=== PATIENT | male | born 1955 | race Caucasian/White ===

== ENCOUNTER → 2024-10-13 | Outpatient (BNVA) | payer MEDICARE, MEDICAID, SELFPAY | END | disposition home or self-care (01) | PROVIDERS: PCP Nurse Practitioner Family; Referring Provider Nurse Practitioner Family; Visit Provider Urology | DX: N40.1 Benign prostatic hyperplasia with lower urinary tract symptoms (principal); R39.12 Poor urinary stream; I10 Essential (primary) hypertension; J44.9 Chronic obstructive pulmonary disease, unspecified; Z86.73 Personal history of transient ischemic attack (TIA), and cerebral infarction without residual deficits | CPT/HCPCS: 51741; 51798 ==

== ENCOUNTER → 2025-01-27 | Outpatient (CLI) | payer MEDICARE, MEDICAID, SELFPAY ==
[2025-01-27 12:04] LABS: Basophils % (Auto) 0 % (0-2.5); Eosinophils # (Auto) 0.2 Thou/mm3 (0.0-0.5); Eosinophils % (Auto) 3 % (0-10); Hematocrit 44.2 % (41.0-53.0); Hemoglobin 14.9 g/dL (13.5-16.0); Immature Granulocytes % (Auto) 0 % (0-0); Immature Granulocytes Auto 0.02 Thou/mm3 (0.00-0.00); Lymphocytes # (Auto) 1.2 Thou/mm3 (1.0-4.8); Lymphocytes % (Auto) 18 % (10-50); Mean Corpuscular HGB Conc 33.7 g/dl (31.0-37.0); Mean Corpuscular Hemoglobin 29.4 pg (25.0-35.0); Mean Corpuscular Volume 87 fL (80-100); Monocytes # (Auto) 0.6 Thou/mm3 (0.0-0.8); Monocytes % (Auto) 8 % (0-12); Neutrophils # (Auto) 4.8 Thou/mm3 (1.8-7.7); Neutrophils % (Auto) 71 % (37-80); Nucleated Red Blood Cell % 0 /100 WBC (0); Platelet Count 223 Thou/mm3 (140-440); RDW Standard Deviation 47.5 fL (35.1-43.9); Red Blood Count 5.07 Miln/mm3 (4.50-5.90); White Blood Count 6.7 Thou/mm3 (3.8-10.6)
[2025-01-27 12:11] LABS: Partial Thromboplastin Time 27.6 Seconds (22.0-36.0); Prothrombin Time 11.2 Seconds (9.0-12.2)
[2025-01-27 12:14] LABS: Anion Gap 8 (7-16); BUN/Creatinine Ratio 17 Ratio (12-20); Blood Urea Nitrogen 15 mg/dL (9-23); Calcium 9.4 mg/dL (8.3-10.6); Carbon Dioxide 32.2 mMol/L (20.0-31.0); Chloride 103 mMol/L (98-107); Creatinine (Component) 0.9 mg/dL (0.6-1.3); Glucose 91 mg/dL (74-106); Osmolality,Calculated 285 (275-295); Sodium 143 mMol/L (136-145); eGFR > 60 See Note
== END | disposition home or self-care (01) ==
LOC: COPL 10:47
PROVIDERS: PCP Nurse Practitioner Family; Referring Provider Internal Medicine; Visit Provider Internal Medicine
DX: I25.10 Atherosclerotic heart disease of native coronary artery without angina pectoris (principal); I48.91 Unspecified atrial fibrillation
CPT/HCPCS: 36415; 80048; 85025; 85610; 85730

== ENCOUNTER → 2025-04-11 | Outpatient (CLI) | payer MEDICARE, MEDICAID, SELFPAY ==
--- NOTE | 2025-04-11 10:53 | XR_ITS ---
Examination: PA lateral chest 2 views TECHNIQUE: Upright PA lateral chest 2 views Date and time: April 11, 2025 1112 hours INDICATIONS: Diagnosis COPD. FINDINGS: Normal heart size. Mild hyperexpansion. Lungs are clear. Moderate thoracic spondylosis IMPRESSION: Mild hyperexpansion
[2025-04-11 12:27] LABS: Basophils # (Auto) 0.1 Thou/mm3 (0.0-0.2); Basophils % (Auto) 1 % (0-2.5); Eosinophils # (Auto) 0.3 Thou/mm3 (0.0-0.5); Eosinophils % (Auto) 4 % (0-10); Hematocrit 44.2 % (41.0-53.0); Hemoglobin 14.9 g/dL (13.5-16.0); Immature Granulocytes % (Auto) 0 % (0-0); Immature Granulocytes Auto 0.02 Thou/mm3 (0.00-0.00); Lymphocytes % (Auto) 14 % (10-50); Mean Corpuscular HGB Conc 33.7 g/dl (31.0-37.0); Mean Corpuscular Hemoglobin 29.7 pg (25.0-35.0); Mean Corpuscular Volume 88 fL (80-100); Monocytes # (Auto) 0.6 Thou/mm3 (0.0-0.8); Monocytes % (Auto) 8 % (0-12); Neutrophils % (Auto) 73 % (37-80); Nucleated Red Blood Cell % 0 /100 WBC (0); Platelet Count 158 Thou/mm3 (140-440); RDW Standard Deviation 45.5 fL (35.1-43.9); Red Blood Count 5.02 Miln/mm3 (4.50-5.90); White Blood Count 6.9 Thou/mm3 (3.8-10.6)
[2025-04-11 12:39] LABS: Alanine Aminotransferase 12 U/L (10-49); Albumin, Serum 4.2 gm/dL (3.4-4.8); Albumin/Globulin Ratio 1.6 (1.2-2.2); Alkaline Phosphatase 138 U/L (46-116); Anion Gap 6 (7-16); Aspartate Amino Transferase 14 U/L (0-34); BUN/Creatinine Ratio 12 Ratio (12-20); Bilirubin,Total 0.9 mg/dL (0.3-1.2); Blood Urea Nitrogen 12 mg/dL (9-23); Calcium 8.9 mg/dL (8.3-10.6); Calcium (Corrected) 8.9 mg/dL (8.5-10.1); Cardiac Risk Estimate 3.7 RATIO (4.0-6.7); Chloride 99 mMol/L (98-107); Cholesterol 156 mg/dL (132-200); Globulin 2.6 gm/dL (2.3-3.5); Glucose 99 mg/dL (74-106); HDL Cholesterol 42 mg/dL (40-60); LDL Cholesterol,Calculated 91 mg/dL (0-130); Osmolality,Calculated 275 (275-295); Sodium 138 mMol/L (136-145); Thyroid Stimulating Hormone 1.03 uIU/mL (0.55-4.78); Total Protein 6.8 gm/dL (5.7-8.2); Triglycerides 116 mg/dL (30-150); Vitamin D 25 Hydroxy Total 37.1 ng/mL (7.3-40.2); eGFR > 60 See Note
[2025-04-11 13:00] LABS: Glucose Estimated Average 111 mg/dL (80-131); Hemoglobin A1C 5.5 % Hgb (4.8-6.0)
[2025-04-11 14:02] LABS: Collection Type, Urine Clean Catch
[2025-04-11 14:57] LABS: Bacteria,Urine Rare; Bilirubin,Urine Negative (Negative); Blood,Urine Negative (Negative); Clarity,Urine Clear (Clear/Hazy); Color,Urine Yellow (Lt Yel-Yel); Glucose, Urine Negative (Negative); Ketones,Urine Negative (Negative); Leukocyte Esterase,Urine Negative (Negative); Nitrite,Urine Negative (Negative); PH,Urine 7.5 (5.0-7.0); Protein,Urine Negative (Neg - Trace); RBC,Urine < 1 /hpf (0-3); Specific Gravity,Urine 1.021 (1.001-1.035); Squamous Epithelial Cell,Urine < 1 /hpf (0-5); WBC,Urine < 1 /hpf (0-5)
[2025-04-11 15:03] LABS: Creatinine MALB Rnd Ur 142 mg/dL (30-125); Microalbumin, Random Urine < 3 mg/L (0-300)
[2025-04-15 11:17] LABS: Hepatitis B Virus DNA* NOT DETECTED
[2025-04-18 07:01] LABS: Hepatitis B DNA PCR NOT DETECTED Log IU/mL
[2025-04-18 07:02] LABS: HIV Ag/Ab, 4th Gen NON-REACTIVE
== END | disposition home or self-care (01) ==
LOC: CDIM 10:42 → COPL 11:17
PROVIDERS: Visit Provider Radiology Diagnostic Radiology
DX: J98.4 Other disorders of lung (principal); Z00.00 Encounter for general adult medical examination without abnormal findings; R80.9 Proteinuria, unspecified; Z11.59 Encounter for screening for other viral diseases; Z11.4 Encounter for screening for human immunodeficiency virus [HIV]; Z79.899 Other long term (current) drug therapy
CPT/HCPCS: 36415; 71046; 80053; 80061; 81001; 82043; 82306; 82570; 83036; 84443; 85025; 87389; 87517; 87522

== ENCOUNTER → 2025-07-18 | Outpatient (BNVA) | payer MEDICARE, MEDICAID, SELFPAY | END | disposition home or self-care (01) | PROVIDERS: PCP Nurse Practitioner Family; Referring Provider Nurse Practitioner Family; Visit Provider Urology | DX: N40.1 Benign prostatic hyperplasia with lower urinary tract symptoms (principal); N13.8 Other obstructive and reflux uropathy; I10 Essential (primary) hypertension; Z86.73 Personal history of transient ischemic attack (TIA), and cerebral infarction without residual deficits; E66.9 Obesity, unspecified; Z68.26 Body mass index [BMI] 26.0-26.9, adult; J44.9 Chronic obstructive pulmonary disease, unspecified | CPT/HCPCS: 81003; 99212; G0463 ==

== ENCOUNTER 2025-09-12 16:03 | Emergency (ER) | payer MEDICARE, MEDICAID, SELFPAY ==
[2025-09-12 16:07] VITALS: BP 108/76; PULSE 82; RESP 20; TEMP 36.6; O2SAT 93
--- NOTE | 2025-09-12 16:29 | PD.EDADULT ---
ED General RME/HPI General Chief complaint: Fall Stated complaint: GROUND LEVEL FALL Time Seen by Provider: 09/12/25 16:49 Arrival date/time: 09/12/25 16:03 RME / HPI RME / HPI narrative: 70 year old male presents to the ED BIBA from home for evaluation following a fall today. Per medics, daughter on scene reported the patient had soiled himself. While walking upstairs to shower he lost strength in both legs and fell forward, striking his face on a cat scratching post. No LOC. Daughter reported the sudden weakness to be unusual for the patient which concerned her. Additionally stated patient has had a nonproductive cough for several weeks. However, noted phlegm production in the last several days. Related Data Home Medications ?Medication ?Instructions ?Recorded ?Confirmed alendronate 70 mg tablet (Fosamax) 70 mg PO QWEEK 06/17/24 07/18/25 aspirin 81 mg tablet 81 mg PO QDAY 06/17/24 07/18/25 atorvastatin 10 mg tablet 10 mg PO QDAY 06/17/24 07/18/25 hydrochlorothiazide 12.5 mg tablet 12.5 mg PO QDAY 06/17/24 07/18/25 losartan 50 mg tablet 50 mg PO QDAY 06/17/24 07/18/25 memantine 10 mg tablet 10 mg PO BID 06/17/24 07/18/25 omeprazole 20 mg tablet,delayed 20 mg PO QDAY 06/17/24 07/18/25 release finasteride 5 mg tablet 5 mg PO QDAY 09/12/24 07/18/25 tamsulosin 0.4 mg capsule 0.4 mg PO QHS 09/12/24 07/18/25 Allergies Allergy/AdvReac Type Severity Reaction Status Date / Time No Known Allergies Allergy Verified 07/18/25 14:18 Review of Systems Review of Systems Systems Reviewed: All systems reviewed, normal except as documented Past Medical History Past Medical History NEUROLOGIC: Positive Cerebrovascular Accident CARDIAC: Positive Hypercholesterolemia and Hypertension RESPIRATORY: Positive Chronic Obstructive Pulmonary Disease (COPD) GENITOURINARY: Positive Benign Prostatic Hyperplasia OTHER HISTORY: Positive Blood Transfusions Social History SMOKING STATUS: Current every day smoker ED Exam Narrative Physical exam: GENERAL APPEARANCE: alert and oriented x 4, well-developed, well-nourished, no acute distress HEENT: Normocephalic; abrasion to nose; pupils equal, round, reactive to light; EOMI; mucous membranes pink, moist; oropharynx clear NECK: Supple LUNGS: CTABL; no wheezes, no rales, no rhonchi HEART: Regular rate, regular rhythm; normal S1, S2; no murmurs ABDOMEN: non distended; normal BS; soft, no tenderness, no guarding, no rebound; no masses, no organomegaly, no hernia BACK: no CVA tenderness EXTREMITIES: atraumatic; no edema NEUROLOGIC: awake; alert and oriented x4; cranial nerves II-XII grossly intact PSYCHIATRIC: appropriate mood and affect SKIN: warm, dry, normal color; no rashes Course Course Course Narrative: 1800: Patient signed out to Dr. Stewart pending labs, imaging, and final disposition. Quality Measures none Orders Category Date Time Status Bedside COVID-19 Antigen Test NOW Care 09/12/25 17:45 Completed EKG (ED ONLY) *Do not use* NOW Care 09/12/25 18:[address] head/brain wo con Stat Exams 09/12/25 18:13 Completed EKG (ED Only) Stat Exams 09/12/25 18:12 Draft XR chest 1V portable Stat Exams 09/12/25 17:45 Completed XR pelvis 1-2V Stat Exams 09/12/25 18:24 Completed B-Type Natriuretic Peptide Stat Lab 09/12/25 18:08 Completed CBC Stat Lab 09/12/25 18:08 Completed Comprehensive Metabolic Panel Stat Lab 09/12/25 18:08 Completed Influenza A & B Rapid Panel Stat Lab 09/12/25 18:05 Completed Magnesium Stat Lab 09/12/25 18:08 Completed PT [Prothrombin Time with INR] Stat Lab 09/12/25 18:08 Completed Troponin I Stat Lab 09/12/25 18:08 Completed UA, C/S IF [Urinalysis, C/S if Indicated] Stat Lab 09/12/25 21:47 Completed Vital Signs Vital signs: Vital Signs Temperature 97.8 F 09/12/25 16:07 Pulse Rate 82 09/12/25 16:07 Respiratory Rate 20 09/12/25 16:07 Blood Pressure 108/76 09/12/25 16:07 Pulse Oximetry (%) 93 L 09/12/25 16:07 Oxygen Delivery Method Room Air 09/12/25 16:07 Pulse ox is 93% on room air which is borderline low. Discharge Plan Plan Patient Disposition: HOME (Self Care) Prescriptions/Referrals Prescriptions/Med Rec: No Action finasteride 5 mg tablet 5 mg PO QDAY tamsulosin 0.4 mg capsule 0.4 mg PO QHS losartan 50 mg Tablet 50 mg PO QDAY atorvastatin 10 mg Tablet 10 mg PO QDAY alendronate [Fosamax] 70 mg Tablet 70 mg PO QWEEK aspirin 81 mg Tablet 81 mg PO QDAY memantine 10 mg Tablet 10 mg PO BID hydrochlorothiazide 12.5 mg Tablet 12.5 mg PO QDAY omeprazole 20 mg Tablet,Delayed Release (Dr/Ec) 20 mg PO QDAY Referrals: Paula Tamez PA-C [Primary Care Provider] - In 1 week Problem List Clinical Impression: Fall, Abrasion of face Patient/Caregiver Discharge Instructions Education Materials: Fall Prevention Assessing Risk, ED Abrasions Additional Instructions: Please follow-up with your primary care doctor within 1 to 2 days, return immediately if you have any worsening symptoms or new symptoms of concern. Please also discuss with your braid folder your frequent PVCs. Print Language: [place] Stand Alone Forms: [employer] Award Info., Patient Portal Info Letter MDM Narrative Sign Out note: 1800: Patient signed out to Dr. Stewart pending labs, imaging, and final disposition. MDM hospital course (for use when minimal MDM required): Dary Pacheco am scribing for and in the presence of Dr. Rainey. Clinical Information Provided by: patient, EMS and family Medical [facility] and [facility] Meds/Rx considered, not ordered None Labs/Rad/Tests considered, not ordered None Chronic Illness/Social Conditions which may negatively complicate care or outcome(s)-explain: None or not applicable EKG EKG not done Labs Labs: none Imaging Imaging interpretation: none Medication Administration(s) none Diagnosis Diagnoses ruled out and/or further discussions: Fall
[2025-09-12 16:48] VITALS: PULSE 106; RESP 18; O2SAT 95; BMI 21.7
--- NOTE | 2025-09-12 17:09 | PD.EDFALL ---
ED Fall Injury RME/HPI General Chief Complaint: Fall Stated Complaint: GROUND LEVEL FALL Time Seen by Provider: 09/12/25 16:49 Arrival date/time: 09/12/25 16:03 RME / HPI RME / HPI Narrative: 70 year old male presents to the ED BIBA from home for evaluation following a fall today. Per medics, daughter on scene reported the patient had soiled himself. While walking upstairs to shower he lost strength in both legs and fell forward, striking his face on a cat scratching post. No LOC. Daughter reported the sudden weakness to be unusual for the patient which concerned her. Additionally stated patient has had a nonproductive cough for several weeks. However, noted phlegm production in the last several days. Related Data Home Medications ?Medication ?Instructions ?Recorded ?Confirmed alendronate 70 mg tablet (Fosamax) 70 mg PO QWEEK 06/17/24 07/18/25 aspirin 81 mg tablet 81 mg PO QDAY 06/17/24 07/18/25 atorvastatin 10 mg tablet 10 mg PO QDAY 06/17/24 07/18/25 hydrochlorothiazide 12.5 mg tablet 12.5 mg PO QDAY 06/17/24 07/18/25 losartan 50 mg tablet 50 mg PO QDAY 06/17/24 07/18/25 memantine 10 mg tablet 10 mg PO BID 06/17/24 07/18/25 omeprazole 20 mg tablet,delayed 20 mg PO QDAY 06/17/24 07/18/25 release finasteride 5 mg tablet 5 mg PO QDAY 09/12/24 07/18/25 tamsulosin 0.4 mg capsule 0.4 mg PO QHS 09/12/24 07/18/25 Allergies Allergy/AdvReac Type Severity Reaction Status Date / Time No Known Allergies Allergy Verified 07/18/25 14:18 Course Vital Signs Vital signs: Vital Signs Temperature 97.8 F 09/12/25 16:07 Pulse Rate 82 09/12/25 16:07 Respiratory Rate 20 09/12/25 16:07 Blood Pressure 108/76 09/12/25 16:07 Pulse Oximetry (%) 93 L 09/12/25 16:07 Oxygen Delivery Method Room Air 09/12/25 16:07 Discharge Plan Prescriptions/Referrals Prescriptions/Med Rec: No Action finasteride 5 mg tablet 5 mg PO QDAY tamsulosin 0.4 mg capsule 0.4 mg PO QHS losartan 50 mg Tablet 50 mg PO QDAY atorvastatin 10 mg Tablet 10 mg PO QDAY alendronate [Fosamax] 70 mg Tablet 70 mg PO QWEEK aspirin 81 mg Tablet 81 mg PO QDAY memantine 10 mg Tablet 10 mg PO BID hydrochlorothiazide 12.5 mg Tablet 12.5 mg PO QDAY omeprazole 20 mg Tablet,Delayed Release (Dr/Ec) 20 mg PO QDAY Referrals: Paula Tamez PA-C [Primary Care Provider] - In 1 week Patient/Caregiver Discharge Instructions Print Language: French
--- NOTE | 2025-09-12 17:45 | XR_ITS ---
EXAMINATION: AP chest single view TECHNIQUE: AP portable upright chest single view Date and time: September 12, 2025, 1749 hours, comparison April 11, 2025 INDICATION: Chest pain shortness of breath today. FINDINGS: Mild prominence left ventricle Ectatic thoracic aorta. Mild vascular congestion. No lobar pneumonia or pulmonary edema. Mild osteopenia IMPRESSION: Mild prominence left ventricle Mild vascular congestion
--- NOTE | 2025-09-12 18:12 | EKG_ITS ---
[facility] Test Date: 2025-09-12 Pat Name: JOSÉ LOPEZ Department: Room: - Gender: Male Gum Cook: : 1955 Requested By: Beverly Horton Order Number: [id number] Reading MD: Beverly Horton Measurements Intervals [place] Rate: 80 P: 44 W[place]: 214 QRS: 38 QRSD: 95 T: 56 QT: 371 QTc: 428 Interpretive Statements SINUS RHYTHM WITH FIRST DEGREE AV BLOCK WITH OCCASIONAL VENTRICULAR PREMATURE COMPLEXES Compared to ECG 01/12/2023 19:02:33 Sinus tachycardia no longer present ST (T wave) deviation no longer present /store/S0/[id number].pdf
--- NOTE | 2025-09-12 18:13 | XR_ITS ---
Examination: CT brain head without contrast. 2-D sagittal coronal reconstructions Date and time of exam: September 12, 2025, 2052 hours INDICATIONS: Patient fell today with injury to head, head pain CTDI: vol (mGy): 51.6 DLP: (mGycm): 1089 Technique: Multiple CT axial sections of the brain have been obtained, 5 mm slice thickness. Contrast has not been administered. 2-D sagittal, coronal reconstructions have been obtained Low dose protocols were performed. One or more of the following dose reduction techniques were used; automated exposure control, adjustment of the mA and/or KV according to patient size, use of iterative reconstruction technique. Findings: No significant ventricular enlargement. Intra-axial or extra-axial hemorrhage density is not seen. No mass effect or midline shift Basal cisterns are not remarkable. Fourth ventricle is midline. Cranial vault intact. Impression: Negative for acute hemorrhage, mass effect or midline shift
[2025-09-12 18:23] LABS: Basophils # (Auto) 0.0 Thou/mm3 (0.0-0.2); Basophils % (Auto) 0 % (0-2.5); Eosinophils # (Auto) 0.1 Thou/mm3 (0.0-0.5); Eosinophils % (Auto) 1 % (0-10); Hematocrit 43.9 % (41.0-53.0); Hemoglobin 14.6 g/dL (13.5-16.0); Immature Granulocytes Auto 0.05 Thou/mm3 (0.00-0.00); Lymphocytes # (Auto) 0.9 Thou/mm3 (1.0-4.8); Lymphocytes % (Auto) 9 % (10-50); Mean Corpuscular HGB Conc 33.3 g/dl (31.0-37.0); Mean Corpuscular Hemoglobin 29.4 pg (25.0-35.0); Mean Corpuscular Volume 89 fL (80-100); Monocytes # (Auto) 0.8 Thou/mm3 (0.0-0.8); Monocytes % (Auto) 8 % (0-12); Neutrophils # (Auto) 8.2 Thou/mm3 (1.8-7.7); Neutrophils % (Auto) 81 % (37-80); Nucleated Red Blood Cell # 0.00 Thou/mm3 (0.00-0.00); Nucleated Red Blood Cell % 0 /100 WBC (0); Platelet Count 203 Thou/mm3 (140-440); RDW Standard Deviation 43.8 fL (35.1-43.9); Red Blood Count 4.96 Miln/mm3 (4.50-5.90); White Blood Count 10.2 Thou/mm3 (3.8-10.6)
--- NOTE | 2025-09-12 18:24 | XR_ITS ---
EXAMINATION: AP pelvis single view TECHNIQUE: AP portable supine pelvis single view Date and time: September 12, 2025, 1950 hours INDICATION: Patient fell today with image of the pelvis, pelvic pain. FINDINGS: No acute right or left hip fracture, no hip dislocations Bones of the pelvis intact IMPRESSION: No acute hip or pelvic fracture
[2025-09-12 18:40] LABS: INR 1.0 (0.9-1.3); Prothrombin Time 10.9 Seconds (9.0-12.2)
[2025-09-12 18:46] LABS: B-Type Natriuretic Peptide 58 pg/mL (0-100)
[2025-09-12 18:50] LABS: Alanine Aminotransferase 10 U/L (10-49); Albumin, Serum 4.0 gm/dL (3.4-4.8); Albumin/Globulin Ratio 1.9 (1.2-2.2); Alkaline Phosphatase 107 U/L (46-116); Anion Gap 7 (7-16); Aspartate Amino Transferase 18 U/L (0-34); BUN/Creatinine Ratio 12 Ratio (12-20); Bilirubin,Total 0.5 mg/dL (0.3-1.2); Blood Urea Nitrogen 12 mg/dL (9-23); Calcium 8.8 mg/dL (8.3-10.6); Calcium (Corrected) 8.8 mg/dL (8.5-10.1); Carbon Dioxide 33.2 mMol/L (20.0-31.0); Chloride 98 mMol/L (98-107); Creatinine (Component) 1.0 mg/dL (0.6-1.3); Estimated Creatinine Clearance 72.8 mL/min (>60); Globulin 2.1 gm/dL (2.3-3.5); Glucose 87 mg/dL (74-106); Magnesium 2.2 mg/dL (1.6-2.6); Osmolality,Calculated 274 (275-295); Potassium 4.2 mMol/L (3.4-5.1); Sodium 138 mMol/L (136-145); Total Protein 6.1 gm/dL (5.7-8.2); Troponin I < 0.020 ng/mL (0.0-0.045); eGFR > 60 See Note
[2025-09-12 18:53] LABS: Influenza A Ag Negative; Influenza B Ag Negative
[2025-09-12 20:30] VITALS: BP 135/80; PULSE 71; RESP 21; TEMP 36.8; O2SAT 90
--- NOTE | 2025-09-12 21:16 | PD.EDADDENDU ---
Emergency Room Addendum Addendum Narrative: Patient was seen by Dr. CORDOVA originally, care now transitioned to me. Concern for fall, head trauma and acute episode of weakness. Concern for ACS arrhythmia electrolyte abnormality intracranial hemorrhage pelvic injury among others. Ordered labs EKG CT brain after medication for symptom relief. Also ordered chest x-ray given concerns for shortness of breath and cough at home. Per report patient is at his neurologic baseline. Labs without any acute hematologic abnormality, no significant metabolic derangement, troponin not elevated, viral swabs negative. Pelvic x-ray unremarkable, head CT negative chest x-ray with mild vascular congestion otherwise unremarkable. EKG performed today at 1847 notable for sinus rhythm, heart rate 80, prolonged SC, 214, normal QT, nonspecific T wave changes, not a cardiac alert, occasional PVCs. Updated patient and his daughter, patient has no complaints and would like to be dc'd. On multiple reevaluations patient hemodynamically stable not in distress will discharge home with close return precautions and follow-up with this provider
[2025-09-12 22:31] LABS: Collection Type, Urine Clean Catch; Squamous Epithelial Cell,Urine 0 /hpf (0-5)
[2025-09-12 22:38] LABS: Bilirubin,Urine Negative (Negative); Blood,Urine Negative (Negative); Clarity,Urine Clear (Clear/Hazy); Color,Urine Yellow (Lt Yel-Yel); Culture Indicated,Urine Not Indicated; Glucose, Urine Negative (Negative); Ketones,Urine Negative (Negative); Leukocyte Esterase,Urine Negative (Negative); Nitrite,Urine Negative (Negative); PH,Urine 6.5 (5.0-7.0); Protein,Urine Negative (Neg - Trace); RBC,Urine 1 /hpf (0-3); Specific Gravity,Urine 1.014 (1.001-1.035); Urobilinogen,Urine 2.0 mg/dL (0.0-1.0); WBC,Urine 1 /hpf (0-5)
[2025-09-12 23:00] VITALS: BP 119/80; PULSE 70; RESP 20; TEMP 36.8; O2SAT 92
== END 2025-09-13 00:20 | disposition home or self-care (01) ==
PROVIDERS: Emergency Medicine; Emergency Provider Emergency Medicine; PCP Physician Assistant
DX: S00.81XA Abrasion of other part of head, initial encounter (principal); W22.8XXA Striking against or struck by other objects, initial encounter; Y93.01 Activity, walking, marching and hiking
CPT/HCPCS: 36415; 70450; 71045; 72170; 80053; 81001; 83735; 83880; 84484; 85025; 85610; 87502; 87811; 93005; 99282